=== PATIENT | male | born 1990 | race Caucasian/White ===

== ENCOUNTER 2022-08-11 09:49 | Emergency (ER) | payer OTHER ==
[~2022-08-11] VITALS: Ht 172.7 cm; Wt 58.1 kg
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
--- NOTE | 2022-08-11 10:15 | NUR ---
dr. mcgee at bed side for eval
[2022-08-11] MEDS ORDERED: IBUP-1957 PO (11:20)
[2022-08-11 11:36] VITALS: BP 131/77
--- NOTE | 2022-08-11 11:36 | NUR ---
Patient discharged to home in stable condition. Written and verbal after care instructions given. Patient verbalizes understanding of instruction.
== END 2022-08-11 11:57 | disposition home or self-care (01) ==
LOC: ER 09:53
DX: S20.219A Contusion of unspecified front wall of thorax, initial encounter (principal); S00.33XA Contusion of nose, initial encounter; Z79.1 Long term (current) use of non-steroidal anti-inflammatories (NSAID); V89.2XXA Person injured in unspecified motor-vehicle accident, traffic, initial encounter; Y93.89 Activity, other specified; Y92.89 Other specified places as the place of occurrence of the external cause; Y99.8 Other external cause status
CPT/HCPCS: 71045-TC